=== PATIENT | female | born 1960 ===

== ENCOUNTER → 2017-02-14 | Outpatient (CLI) | payer MEDICARE, MEDICAID ==
[~2017-02-14] MED LIST: AROMASIN25 MG PO; BREO IH; CARAFATE 1GM1 G PO; DECADRON 4MG TAB4 MG PO; DEXILANT60 MG PO; GLUCOPHAGE500 MG/TAB PO; PERCOCET 325 MG1 TAB PO; SYNTHROID0.175 MG PO; VENTOLIN0.09 MG IH
== END ==
LOC: COL.RAD 15:24
DX: C50.411 Malignant neoplasm of upper-outer quadrant of right female breast (principal); C79.51 Secondary malignant neoplasm of bone; C72.0 Malignant neoplasm of spinal cord; I10 Essential (primary) hypertension
CPT/HCPCS: A9585

== ENCOUNTER 2017-03-10 05:30 | Day surgery (SDC) | payer MEDICARE, MEDICAID ==
[~2017-03-10] VITALS: Ht 154.9 cm; Wt 67.2 kg
[2017-03-10 06:13] VITALS: BP 129/72; PULSE 97; TEMP 97.8
[2017-03-10] MEDS ORDERED: DECADRON 4MG TAB4 MG PO (06:20)
[2017-03-10] MEDS ORDERED: BREO IH (06:20)
[2017-03-10] MEDS ORDERED: AROMASIN25 MG PO (06:21)
[2017-03-10] MEDS ORDERED: DEXILANT60 MG PO (06:21)
[2017-03-10] MEDS ORDERED: SYNTHROID0.175 MG PO (06:22)
[2017-03-10] MEDS ORDERED: GLUCOPHAGE500 MG/TAB PO ×2 (06:22→06:23)
[2017-03-10] MEDS ORDERED: PERCOCET 325 MG1 TAB PO ×2 (06:24→08:56)
[2017-03-10] MEDS ORDERED: CARAFATE 1GM1 G PO (06:24)
[2017-03-10] MEDS ORDERED: VENTOLIN0.09 MG IH (06:25)
[2017-03-10 08:51] VITALS: BP 143/72; PULSE 98; TEMP 98
[2017-03-10 09:05] VITALS: BP 142/72; PULSE 91
[2017-03-10 09:20] VITALS: BP 139/72; PULSE 91
== END 2017-03-10 10:28 | disposition home or self-care (01) ==
LOC: SDCO 05:30
DX: Z45.2 Encounter for adjustment and management of vascular access device (principal); C79.81 Secondary malignant neoplasm of breast; M19.90 Unspecified osteoarthritis, unspecified site; J44.9 Chronic obstructive pulmonary disease, unspecified; E03.9 Hypothyroidism, unspecified; K21.9 Gastro-esophageal reflux disease without esophagitis; J40 Bronchitis, not specified as acute or chronic; E11.9 Type 2 diabetes mellitus without complications; F17.210 Nicotine dependence, cigarettes, uncomplicated; Z90.11 Acquired absence of right breast and nipple; Z90.49 Acquired absence of other specified parts of digestive tract; Z82.49 Family history of ischemic heart disease and other diseases of the circulatory system; Z80.3 Family history of malignant neoplasm of breast; E86.0 Dehydration; Z79.84 Long term (current) use of oral hypoglycemic drugs; Z86.2 Personal history of diseases of the blood and blood-forming organs and certain disorders involving the immune mechanism
CPT/HCPCS: C1788; J0690; J1644; J2370; J2704; J3010; J7030